=== PATIENT | male | born 2000 | race African-American/Black ===

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

== ENCOUNTER 2019-11-02 20:35 | Emergency (ER) | payer OTHER, SELFPAY ==
--- OUTSIDE RECORDS SUMMARY | 2019-11-02 20:38 | XMS REPORT ---
:2000 Author Organization e[employer] Care Team Providers Name Role Phone Poonam Gustafson Provider Role Unavailable Allergies, Adverse Reactions, Alerts Substance Reaction Event Type N.K.D.A. Info Not Available Non Drug Allergy Problems Problem Type Condition Code Onset Dates Condition Status Problem Attention deficit hyperactivity F90.9 Active disorder (ADHD), unspecified ADHD type Problem Dysthymia F34.1 Active Problem Dermatitis L30.9 Active Assessment Dermatitis L30.9 Active Medications Medication Code System Code Instructions Start End Date Status Dosage Date Focalin XR [facility] [id number] 20 MG Orally Active 1 capsule Once a day in the morning Results No Known Results Summary Purpose eClinicalWorks Submission
--- NOTE | 2019-11-03 01:46 | EDPHYS ---
Physician Documentation [facility] Name: Candelario Brewer Age: 19 yrs Sex: Male : 2000 Arrival Date: 11/02/2019 Time: 20:39 Bed 23 Private MD: ED Physician Adalberto Smith HPI: 11/01 23:15 This 19 yrs old Black Male presents to ER via Ambulatory with complaints of Abdominal snw Pain. 23:15 The patient presents with left groin tenderness. Onset: The symptoms/episode snw began/occurred suddenly, 2 day(s) ago, and became persistent. The symptoms do not radiate. Associated signs and symptoms: none. The symptoms are described as constant. Severity of pain: At its worst the pain was moderate. The patient has not experienced similar symptoms in the past. It is unknown whether or not the patient has recently seen a physician. Historical: - Allergies: 20:43 No Known Allergies; aj1 - Home Meds: 20:43 None [Active]; aj1 - PMHx: 20:43 ADD/ADHD; aj1 - PSHx: 20:43 None; aj1 - Immunization history:: Flu vaccine is not up to date. - Social history:: Smoking status: Patient reports the use of cigarette tobacco products, smokes one pack cigarettes per day. ROS: 23:13 Constitutional: Negative for fever, chills, and weight loss, Eyes: Negative for injury, snw pain, redness, and discharge, ENT: Negative for injury, pain, and discharge, Neck: Negative for injury, pain, and swelling, Cardiovascular: Negative for chest pain, palpitations, and edema, Respiratory: Negative for shortness of breath, cough, wheezing, and pleuritic chest pain, Abdomen/GI: Negative for abdominal pain, nausea, vomiting, diarrhea, and constipation, Back: Negative for injury and pain, : Negative for injury, bleeding, discharge, and swelling, tenderness to left inguinal area post lifting something heavy 2 days ago MS/Extremity: Negative for injury and deformity, Skin: Negative for injury, rash, and discoloration, Neuro: Negative for headache, weakness, numbness, tingling, and seizure. Exam: 23:13 Constitutional: This is a well developed, well nourished patient who is awake, alert, snw and in no acute distress. Head/Face: Normocephalic, atraumatic. Eyes: Pupils equal round and reactive to light, extra-ocular motions intact. Lids and lashes normal. Conjunctiva and sclera are non-icteric and not injected. Cornea within normal limits. Periorbital areas with no swelling, redness, or edema. ENT: Nares patent. No nasal discharge, no septal abnormalities noted. Tympanic membranes are normal and external auditory canals are clear. Oropharynx with no redness, swelling, or masses, exudates, or evidence of obstruction, uvula midline. Mucous membranes moist. Neck: Trachea midline, no thyromegaly or masses palpated, and no cervical lymphadenopathy. Supple, full range of motion without nuchal rigidity, or vertebral point tenderness. No Meningismus. Chest/axilla: Normal chest wall appearance and motion. Nontender with no deformity. No lesions are appreciated. Cardiovascular: Regular rate and rhythm with a normal S1 and S2. No gallops, murmurs, or rubs. Normal PMI, no JVD. No pulse deficits. Respiratory: Lungs have equal breath sounds bilaterally, clear to auscultation and percussion. No rales, rhonchi or wheezes noted. No increased work of breathing, no retractions or nasal flaring. Abdomen/GI: Soft, non-tender, with normal bowel sounds. No distension or tympany. No guarding or rebound. No evidence of tenderness throughout. Back: No spinal tenderness. No costovertebral tenderness. Full range of motion. Male : Normal genitalia with no discharge. Left inguinal canal with firm, lobular mass at upper groin, left testicle normal to palpation, non-tender. Skin: Warm, dry with normal turgor. Normal color with no rashes, no lesions, and no evidence of cellulitis. MS/ Extremity: Pulses equal, no cyanosis. Neurovascular intact. Full, normal range of motion. Neuro: Awake and alert, GCS 15, oriented to person, place, time, and situation. Cranial nerves II-XII grossly intact. Motor strength 5/5 in all extremities. Sensory grossly intact. Cerebellar exam normal. Normal gait. Psych: Awake, alert, with orientation to person, place and time. Behavior, mood, and affect are within normal limits. Vital Signs: 20:41 BP 125 / 88; Pulse 75; Resp 18; Temp 98.4; Pulse Ox 100% on R/A; Height 5 ft. 5 in. aj1 (165.10 cm) (R); Pain 0/10; MDM: 21:44 Patient medically screened. [facility] 11/02 00:06 Data reviewed: vital signs, nurses notes. Data interpreted: Pulse oximetry: on room air snw is 100 %. Interpretation: normal. Counseling: I had a detailed discussion with the patient and/or guardian regarding: the historical points, exam findings, and any diagnostic results supporting the discharge/admit diagnosis, radiology results, US does not show or address inguinal problem. Will CTarea for more information. 01:48 Physician consultation: Adalberto Smith MD in the emergency department to see patient at snw 01:48. 11/01 22:11 Order name: US Scrotum Testicles [facility] 11/02 00:02 Order name: CT Abd/Pelvis - IV Contrast Only snw Administered Medications: 01:55 Drug: [place] 5 mg-325 mg 1 tabs Route: PO; ls4 01:55 Follow up: Response: No adverse reaction ls4 01:55 Drug: Motrin 400 mg Route: PO; ls4 01:55 Follow up: Response: No adverse reaction ls4 01:59 Not Given (Other Intervention Used): Cipro 500 mg PO once ls4 Disposition: 07:30 Co-signature as Attending Physician, Adalberto Smith MD I agree with the assessment and [facility] plan of care. Disposition: 11/03/19 01:45 Discharged to Home. Impression: EPIDIDYMAL CYST. - Condition is Stable. - Discharge Instructions: Scrotal Masses, Heat Therapy. - Prescriptions for Cipro 500 mg Oral Tablet - take 1 tablet by ORAL route every 12 hours for 7 days; 14 tablet. Diclofenac Sodium 75 mg Oral Tablet Sustained Release - take 1 tablet by ORAL route 2 times per day; 30 tablet. - Work release form, Family Work Release, Medication Reconciliation Form, Thank You Letter, Antibiotic Education, Prescription Opioid Use form. - Follow up: Emergency Department; When: As needed; Reason: Worsening of condition. Follow up: Private Physician; When: 2 - 3 days; Reason: Recheck today's complaints, Continuance of care, Re-evaluation by your physician. Signatures: Dispatcher [employer] Tanya Chan RN RN aj1 Adalberto Smith MD MD cha Therrien, Shelly, BLACK TOP SPREADER MACHINE OPERATOR-C BLACK TOP SPREADER MACHINE OPERATOR-Csnw Haydee Humphries, RN RN ls4 Corrections: (The following items were deleted from the chart) 01:56 01:45 11/03/2019 01:45 Discharged to Home. Impression: EPIDIDYMAL CYST. Condition is ls4 Stable. Forms are Medication Reconciliation Form, Thank You Letter, Antibiotic Education, Prescription Opioid Use. Follow up: Emergency Department; When: As needed; Reason: Worsening of condition. Follow up: Private Physician; When: 2 - 3 days; Reason: Recheck today's complaints, Continuance of care, Re-evaluation by your physician. snw
--- NOTE | 2019-11-03 01:46 | ER ---
Nurse's Notes [facility] Name: Candelario Brewer Age: 19 yrs Sex: Male : 2000 Arrival Date: 11/02/2019 Time: 20:39 Bed 23 Private MD: Diagnosis: EPIDIDYMAL CYST Presentation: 11/01 20:41 Chief complaint: Patient states: "I was helping my uncle move and I think I got a aj1 hernia, because I got a swollen spot near my sack" States that he first noticed the lump on his testicle last Wednesday. Coronavirus screen: The patient has NOT traveled to a country currently being monitored by the CDC within the last 14 days. Ebola Screen: Patient denies travel to an Ebola-affected area in the 21 days before illness onset. Initial Sepsis Screen: Does the patient meet any 2 criteria? No. Patient's initial sepsis screen is negative. Does the patient have a suspected source of infection? No. Patient's initial sepsis screen is negative. Risk Assessment: Do you want to hurt yourself or someone else? Patient reports no desire to harm self or others. 20:41 Method Of Arrival: Ambulatory aj1 20:41 Acuity: ROBIN 3 aj1 11/02 00:25 Onset of symptoms is unknown. ls4 Triage Assessment: 11/01 20:43 General: Appears in no apparent distress. comfortable, Behavior is calm, cooperative, aj1 appropriate for age. Pain: Denies pain. Neuro: Level of Consciousness is awake, alert, obeys commands. Cardiovascular: Patient's skin is warm and dry. Respiratory: Airway is patent Respiratory effort is even, unlabored, Respiratory pattern is regular, symmetrical. Historical: - Allergies: 20:43 No Known Allergies; aj1 - Home Meds: 20:43 None [Active]; aj1 - PMHx: 20:43 ADD/ADHD; aj1 - PSHx: 20:43 None; aj1 - Immunization history:: Flu vaccine is not up to date. - Social history:: Smoking status: Patient reports the use of cigarette tobacco products, smokes one pack cigarettes per day. Screenin/13 00:23 Abuse screen: Denies threats or abuse. Denies injuries from another. Nutritional ls4 screening: No deficits noted. Tuberculosis screening: No symptoms or risk factors identified. Fall Risk None identified. Assessment: 11/01 22:45 General: Appears in no apparent distress. Behavior is calm, cooperative. Pain: Denies ls4 pain. Neuro: No deficits noted. Cardiovascular: No deficits noted. Respiratory: No deficits noted. GI: Bowel sounds present X 4 quads. Abd is soft and non tender X 4 quads. genitalia assessment deferred to Practitioner. 11/02 00:22 Reassessment: Patient appears in no apparent distress at this time. Patient and/or ls4 family updated on plan of care and expected duration. Pain level reassessed. Patient is alert, oriented x 3, equal unlabored respirations, skin warm/dry/pink. : Reports LUMP IN TESTICLE AREA THAT HE THINKS MAY BE A HERNIA. 01:25 Reassessment: Patient appears in no apparent distress at this time. Patient and/or ls4 family updated on plan of care and expected duration. Pain level reassessed. Patient is alert, oriented x 3, equal unlabored respirations, skin warm/dry/pink. Vital Signs: 11/01 20:41 BP 125 / 88; Pulse 75; Resp 18; Temp 98.4; Pulse Ox 100% on R/A; Height 5 ft. 5 in. aj1 (165.10 cm) (R); Pain 0/10; ED Course: 20:39 Patient arrived in ED. jg7 20:43 Triage completed. aj1 20:43 Arm band placed on Patient placed in waiting room, Patient notified of wait time. aj1 21:37 Karla Medina FNP-C is [facility]. snw 21:37 Adalberto Smith MD is Attending Physician. snw 22:45 Haydee Humphries, NASH is Primary Nurse. ls4 22:55 Scrotum Testicles In Process Unspecified. EDMS 11/02 00:23 Patient has correct armband on for positive identification. Bed in low position. Call ls4 light in reach. Side rails up X 1. Warm blanket given. 00:23 No provider procedures requiring assistance completed. Inserted saline lock: 20 gauge ls4 in right antecubital area, using aseptic technique. 00:53 CT Abd/Pelvis - IV Contrast Only In Process Unspecified. EDMS 01:56 IV discontinued, intact, bleeding controlled, No redness/swelling at site. Pressure ls4 dressing applied. Administered Medications: 01:55 Drug: [place] 5 mg-325 mg 1 tabs Route: PO; ls4 01:55 Follow up: Response: No adverse reaction ls4 01:55 Drug: Motrin 400 mg Route: PO; ls4 01:55 Follow up: Response: No adverse reaction ls4 01:59 Not Given (Other Intervention Used): Cipro 500 mg PO once ls4 Outcome: 01:45 Discharge ordered by . сергей 01:56 Discharged to home ambulatory, with family. ls4 01:56 Condition: good 01:56 Discharge instructions given to patient, family, Instructed on medication usage, Demonstrated understanding of instructions, follow-up care, medications, Prescriptions given X 2. 01:56 Patient left the ED. ls4 Signatures: Dispatcher [employer] Tanya Chan RN RN aj1 Karla Medina, DENTAL DETAIL REPRESENTATIVE-C DENTAL DETAIL REPRESENTATIVE-Kennethw Haydee Humphries RN RN ls4 [place] BakergPari
[2019-11-03] MEDS ORDERED: HYDROCODONE/APAP 5/325 MG TAB ONE (01:55)
[2019-11-03] MEDS ORDERED: IBUPROFEN 400 MG TAB ONE (01:56)
[2019-11-03 02:14] VITALS: BP 125/88; TEMP 98.4; O2SAT 100
--- NOTE | 2019-11-03 11:08 | RAD REPORT ---
EXAM DESCRIPTION: CT - Abdomen Pelvis W Contrast - 11/03/2019 5:59 am COMPARISON: None CLINICAL HISTORY: Inguinal canal mass TECHNIQUE: Multiple helical axial images were obtained through the abdomen and pelvis using intraven ous contrast. Coronal and sagittal reformatted images were obtained. All CT scans at this facility use dose modulation, iterative reconstruction, and/or weight-based dosi ng when appropriate to reduce radiation dose to as low as reasonably achievable. FINDINGS: Lung bases: Appear unremarkable. Liver: Homogenous attenuation is noted. Gallbladder/biliary: Appears unremarkable Pancreas: Unremarkable. No evidence of ductal enlargement. Spleen: Appears unremarkable. No splenomegaly. Adrenals: Unremarkable. Kidneys and ureters: No evidence of hydronephrosis. Normal enhancement. Bladder: Unremarkable. Pelvic organs: Unremarkable. Bowel: No evidence of bowel obstruction. No bowel wall thickening. Appendix appears unremarkable. Vasculature: Unremarkable. Peritoneum: No free air. No significant free fluid. Lymph nodes: Unremarkable. Soft tissues: Unremarkable. No evidence of an inguinal hernia. Bones: Unremarkable. IMPRESSION: No evidence for an acute process within the abdomen or pelvis. Electronically signed by: Deny Abernathy MD 11/03/2019 1:15 AM CDT Due to temporary technical issues with the PACS/Fluency reporting system, reports are being signed by the in house radiologist as a courtesy to ensure prompt reporting. The interpreting radiologist is f víctorly responsible for the content of the report.
--- NOTE | 2019-11-03 11:14 | RAD REPORT ---
EXAM DESCRIPTION: US - Scrotum Testicles - 11/02/2019 10:55 pm CLINICAL HISTORY: The patient is 19 years old and is Male; PAIN TECHNIQUE: Real-time ultrasound of the scrotum with color Doppler and image documentation. COMPARISON: No relevant prior studies available. FINDINGS: RIGHT TESTICLE: Unremarkable. No mass. No torsion. LEFT TESTICLE: Unremarkable. No mass. No torsion. EPIDIDYMIDES: Suggestion of a left epididymal cysts are noted. SCROTUM: A trace left hydrocele is present. IMPRESSION: No evidence of torsion. Electronically signed by: Shelbi Gao MD 11/02/2019 11:20 PM CDT Due to temporary technical issues with the PACS/Fluency reporting system, reports are being signed by the in house radiologist as a courtesy to ensure prompt reporting. The interpreting radiologist is f ully responsible for the content of the report.
== END 2019-11-03 01:56 | disposition home or self-care (01) ==
LOC: ER 20:35
DX: N50.3 Cyst of epididymis (principal); F17.210 Nicotine dependence, cigarettes, uncomplicated
CPT/HCPCS: 74177; 76870; 99284; Q9967

== ENCOUNTER → 2023-10-27 | Emergency (ER) | payer BC ==
--- OUTSIDE RECORDS SUMMARY | 2023-10-27 12:31 | XMS REPORT | Continuity of Care Document ---
Author Name Unknown Address [address] [place] [address] Organization [facility] thconnect Address [address] [place] [address] Care Team Providers Care Police Manager Name Role Phone PCP, PATIENT DOES NOT HAVE A Primary Care Physic supriya Unavailable LUCIUS BETANCOURT Attending Clinician Unavailable Lucius Betancourt DO Attending Clinician Payers Payer Name Policy Type Policy Number Effective Date Expirati on Date Source [employer] [place] [id number] 2015 00:00:00 Problems Condition Name Condition Details Condition Category Status Onset Date Resolution Date Last Treatment Date Treating Clinician Comments Source Left shoulder pain Left shoulder pain Disease Active 2014-08 00:00: 00 [facility] Attention deficit hyperactiv ity disorder (ADHD), unspecifie d ADHD type Attention deficit hyperactiv ity disorder (ADHD), unspecifie d ADHD type Problem Active [facility] Dysthymia Dysthymia Problem Active Com mon [facility] Dermatitis Dermatitis Diagnosis Active [facility] Allergies, Adverse Reactions, Alerts Allergy Name Allergy Type Status Severity Reaction(s) Onset Date Inactive Date Treating Clinician Comments Source NO KNOWN ALLERGIE S Drug Class Active [facility] Social History Social Habit Start Date Stop Date Quantity Comments Source [facility] 2015-07-04 00:00:00 2015-07-04 00:00:00 minor [facility] Sex Assigned At 2000 00:00:00 2000 00:00:00 [facility] Smoking Status Start Date Stop Date Source Tobacco smoking consumption unknown [facility] Medications Ordered Medication Name Filled Medication Name Start Date Stop Date Current Medication? Ordering Clinician Indication Dosage Frequency Signature (SIG) Comments Components Source methylPREDN ISolone (MEDROL, ANDREEA,) 4 mg tablets 2022-08 00:00: 00 Yes [id number] Take by mouth SEE-INSTRU CTIONS. follow package directions [facility] cetirizine (ZYRTEC) 10 mg tablet 2014-08 00:00: [address] [facility] FOCALIN XR 20 mg 24 hr capsule 04-11 00:00: [address] [facility] Focalin XR Focalin XR Yes Poonam Gustafson 1 capsule in the morning [facility] Vital Signs Vital Name Observation Time Observation Value Comments S ource Systolic blood pressure 2023-07-22 21:06:02 120 mm[Hg] [facility] Diastolic blood pressure 2023-07-22 21:06:02 72 mm[Hg] [facility] Heart rate 2023-07-22 21:06:02 80 /min [facility] Body temperature 2023-07-22 21:06:02 36.83 Liliana [facility] Respiratory rate 2023-07-22 21:06:02 18 /min [facility] Oxygen saturation in Arterial blood by Pulse oximetry 2023-07-22 21:06:02 98 /min [facility] Body height 2023-07-22 19:11:00 165.1 cm [facility] Body weight 2023-07-22 19:11:00 50.259 kg [facility] BMI 2023-07-22 19:11:00 18.44 kg/m2 [facility] Procedures Procedure Date / Time Performed Performing Clinicia n Source ASSIGNMENT OF BENEFITS 2023-07-22 20:19:40 Docto r Unassigned, [place] [facility] RAPID STREP SCREEN FOR GROUP A 2023-07-22 19:09:00 Lucius Betancourt [facility] RAPID INFLUENZA A/B 2023-07-22 19:09:00 Yousuf Betancourt [facility] COVID-19 (ID NOW RAPID TESTING) 2023-07-22 19:09:00 Lucius Betancourt [facility] NOTICE OF PRIVACY PRACTICES 2023-07-22 19:04:54 Doctor Unassigned, [place] [facility] CONSENT/REFUSAL FOR DIAGNOSIS AND TREATMENT 2023-07-22 19:04:04 Doctor Unassigned, [place] [facility] Encounters Start Date/Time End Date/Time Encounter Type Admission Type Attending [facility] Facility Care Department Encounter ID Source 2023-07-22 13:14:00 2023-07-22 15:07:00 Emergency X LUCIUS BETANCOURT [facility] ERT [id number] [facility] 2023-07-22 13:14:00 2023-07-22 15:07:00 Emergency Lucius Betancourt [facility] [id number] [facility] 2018-08-09 11:30:00 2018-08-09 11:30:00 Outpatient [facility] [id number] [facility]
[2023-10-27 13:24] LABS: SARS-CoV-2 Antigen Rapid Res Negative (Negative)
--- NOTE | 2023-10-27 13:41 | ER ---
Nurse's Notes [facility] Name: Candelario Brewer Age: 23 yrs Sex: Male : 2000 Arrival Date: 10/27/2023 Time: 12:26 Bed DX1 Private MD: Diagnosis: Streptococcal pharyngitis Presentation: 10/26 12:52 Chief complaint: Patient states: Pt c/o sore throat, cough, diarrhea x couple days. Pt tl4 took Nyquil that contains alcohol. Pt states he needs to be checked per his compliance officer. Pt denies fever/chills. Coronavirus screen: congestion, cough unrelated to allergies, diarrhea, sore throat. Ebola Screen: No symptoms or risks identified at this time. Initial Sepsis Screen: Does the patient meet any 2 criteria? No. Patient's initial sepsis screen is negative. Does the patient have a suspected source of infection? No. Patient's initial sepsis screen is negative. Risk Assessment: Do you want to hurt yourself or someone else? Patient reports no desire to harm self or others. Onset of symptoms was October 24, 2023. 12:52 Method Of Arrival: Ambulatory tl4 12:52 Acuity: ROBIN 4 tl4 Triage Assessment: 12:55 General: Appears in no apparent distress. Behavior is calm, cooperative. Pain: Denies tl4 pain. EENT: Reports difficulty swallowing. Neuro: No deficits noted. Cardiovascular: No deficits noted. Respiratory: Reports cough that is. GI: Reports diarrhea. : No deficits noted. No signs and/or symptoms were reported regarding the genitourinary system. Derm: No signs and/or symptoms reported regarding the dermatologic system. Musculoskeletal: No signs and/or symptoms reported regarding the musculoskeletal system. Historical: - Allergies: 12:55 No Known Allergies; tl4 - Home Meds: 12:55 None [Active]; tl4 - PMHx: 12:55 ADD/ADHD; tl4 - PSHx: 12:55 None; tl4 - Immunization history:: Adult Immunizations unknown. - Social history:: Smoking status: Reported history of juuling and/or vaping. - Family history:: not pertinent. - Hospitalizations: : No recent hospitalization is reported. Screenin:[facility] ED Fall Risk Assessment (Adult) History of falling in the last 3 months, bp including since admission No falls in past 3 months (0 pts). Abuse screen: Denies threats or abuse. Denies injuries from another. Nutritional screening: No deficits noted. Tuberculosis screening: No symptoms or risk factors identified. Assessment: 13:59 Reassessment: DC HOME AMBULATORY WITH FAMILY. Respiratory: Airway is patent Respiratory bp effort is even, unlabored, Breath sounds are clear. EENT: Throat is reddened. Vital Signs: 12:52 BP 121 / 77; Pulse 80; Resp 16; Temp 98.4; Pulse Ox 100% ; Weight 49.9 kg; Height 5 ft. tl4 5 in. ; Pain 0/10; 12:52 Body Mass Index 18.30 (49.90 kg, 165.1 cm) tl4 12:52 Pain Scale: Adult tl4 ED Course: 12:29 Patient arrived in ED. mg5 12:32 Moe Womack MD is Attending Physician. rn 12:55 Triage completed. tl4 12:56 Arm band placed on right wrist. tl4 12:58 Strep Sent. tl4 12:58 Flu Sent. tl4 12:58 SARS RAPID Sent. tl4 13:53 Gaetano Mejias, RN is Primary Nurse. bp 13:59 Patient has correct armband on for positive identification. bp 13:59 No provider procedures requiring assistance completed. Patient did not have IV access bp during this emergency room visit. Administered Medications: No medications were administered Medication: 13:59 VIS not applicable for this client. bp Outcome: 13:41 Discharge ordered by . rn 13:59 Discharged to home ambulatory, bp 13:59 Condition: stable 13:59 Discharge instructions given to patient, Instructed on discharge instructions, follow up and referral plans. medication usage, Demonstrated understanding of instructions, follow-up care, medications, Prescriptions given X 1, 14:00 Patient left the ED. bp Signatures: Moe Womack MD MD rn Peltier, Brian, RN RN bp [place], [place] mg5 Justin De La Rosa RN RN tl4 Corrections: (The following items were deleted from the chart) 12:55 12:55 Allergies: Aspirin; tl4 tl4
--- NOTE | 2023-10-27 13:42 | EDPHYS ---
Physician Documentation [facility] Name: Candelario Brewer Age: 23 yrs Sex: Male : 2000 Arrival Date: 10/27/2023 Time: 12:26 Bed DX1 Private MD: ED Physician Moe Womack HPI: 10/26 13:39 This 23 yrs old Black Male presents to ER via Ambulatory with complaints of Sore Throat.rn 13:39 The patient presents with sore throat. The patient describes throat pain as dry. The rn patient describes throat pain as raw. Onset: The symptoms/episode began/occurred 2 day(s) ago. Severity of symptoms: At their worst the symptoms were mild, in the emergency department the symptoms are unchanged. Modifying factors: The symptoms are alleviated by nothing, the symptoms are aggravated by nothing. Associated signs and symptoms: Pertinent positives: fever, Pertinent negatives cough, shortness of breath. The patient has not experienced similar symptoms in the past. Historical: - Allergies: 12:55 No Known Allergies; tl4 - Home Meds: 12:55 None [Active]; tl4 - PMHx: 12:55 ADD/ADHD; tl4 - PSHx: 12:55 None; tl4 - Immunization history:: Adult Immunizations unknown. - Social history:: Smoking status: Reported history of juuling and/or vaping. - Family history:: not pertinent. - Hospitalizations: : No recent hospitalization is reported. ROS: 13:39 Constitutional: Positive for subjective fever ENT: Positive for sore throat bucket turner: Negative for chest pain, palpitations, and edema, Respiratory: Negative for shortness of breath, cough, wheezing, and pleuritic chest pain, Abdomen/GI: Negative for abdominal pain, nausea, vomiting, diarrhea, and constipation, Exam: 13:39 Constitutional: This is a well developed, well nourished patient who is awake, alert, rn and in no acute distress. Eyes: Pupils equal round and reactive to light, extra-ocular motions intact. Lids and lashes normal. Conjunctiva and sclera are non-icteric and not injected. Cornea within normal limits. Periorbital areas with no swelling, redness, or edema. ENT: Mild pharyngeal erythema Neck: Trachea midline, no masses palpated, and no cervical lymphadenopathy. Supple, full range of motion without nuchal rigidity, or vertebral point tenderness. No Meningismus. Respiratory: No increased work of breathing, no retractions or nasal flaring. Vital Signs: 12:52 BP 121 / 77; Pulse 80; Resp 16; Temp 98.4; Pulse Ox 100% ; Weight 49.9 kg; Height 5 ft. tl4 5 in. ; Pain 0/10; 12:52 Body Mass Index 18.30 (49.90 kg, 165.1 cm) tl4 12:52 Pain Scale: Adult tl4 MDM: 12:32 Patient medically screened. rn 13:39 Differential diagnosis: group A strep tonsillitis, influenza, pharyngitis, viral rn syndrome. Data reviewed: vital signs, nurses notes, lab test result(s), and as a result, I will discharge patient. Counseling: I had a detailed discussion with the patient and/or guardian regarding the historical points, exam findings, and any diagnostic results supporting the discharge/admit diagnosis, the need for outpatient follow up, to return to the emergency department if symptoms worsen or persist or if there are any questions or concerns that arise at home. Special discussion: I discussed with the patient/guardian in detail that at this point there is no indication for admission to the hospital. It is understood, however, that if the symptoms persist or worsen the patient needs to return immediately for re-evaluation. 03 12:32 Order name: SARS RAPID; Complete Time: 13:35 rn 10/26 12:32 Order name: Flu; Complete Time: 13:35 rn 10/26 12:32 Order name: Strep; Complete Time: 13:35 rn Administered Medications: No medications were administered Disposition Summary: 10/27/23 13:41 Discharge Ordered Notes: Location: Home rn Problem: new rn Symptoms: are unchanged rn Condition: Stable rn Diagnosis - Streptococcal pharyngitis rn Followup: rn - With: Private Physician - When: As needed - Reason: Recheck today's complaints, Re-evaluation by your physician Discharge Instructions: - Discharge Summary Sheet rn - Strep Throat, Adult rn Forms: - Medication Reconciliation Form rn - Thank You Letter rn - Antibiotic rn mds coordinator - Prescription Opioid Use rn - Patient Portal Instructions rn - Leadership Thank You Letter rn - Work release form bp Prescriptions: - Augmentin 875-125 mg Oral Tablet - take 1 tablet ORAL route every 12 hours for 10 days; 20 tablet; Refills: 0, rn Product Selection Permitted Signatures: Dispatcher [employer] Moe Taylor MD MD rn Logdahl, Toni, RN RN tl4 Corrections: (The following items were deleted from the chart) 12:55 12:55 Allergies: Aspirin; tl4 tl4
[2023-10-27 14:14] VITALS: BP 121/77; TEMP 98.4; O2SAT 100
== END ==
LOC: ER 12:26
DX: J02.0 Streptococcal pharyngitis (principal); Z11.52 Encounter for screening for COVID-19
CPT/HCPCS: 36415; 87081; 87804; 87811; 99283